=== PATIENT | female | born 1990 | race Caucasian/White ===

== ENCOUNTER 2019-09-14 04:10 | Emergency (ER) | payer MEDICAID, SELFPAY ==
[~2019-09-14] VITALS: Ht 162.6 cm; Wt 116.8 kg
[2019-09-14 04:14] VITALS: BP 161/103
--- NOTE | 2019-09-14 04:22 | NUR ---
PT SPEAKING IN FULL SENTANCES, AMBULATE TO ROOM WITH STEADY GAIT AND NAD, RADIOLOGY TO BEDSIDE FOR CHEST X RAY, HISTORY ASTHMA, NO IMPROVEMENT TONIGHTS SYMPTOMS WITH USE AT HOME
[2019-09-14] MEDS ORDERED: METF500T17 PO (04:27)
[2019-09-14] MEDS ORDERED: ALBUTEROL (04:27)
[2019-09-14] MEDS ORDERED: INSU100C SQ-INSULIN (04:27)
[2019-09-14] MEDS ORDERED: INSU100V8 SQ (04:27)
[2019-09-14] MEDS ORDERED: ALBUTEROL/IPRATROPIUM 2.5MG/0.5MG, 3 ML ONE (05:14)
[2019-09-14] MEDS ORDERED: ALBUTEROL/IPRATROPIUM 2.5MG/0.5MG, 3 ML NPPB ONE (05:30)
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
== END 2019-09-14 06:13 | disposition home or self-care (01) ==
LOC: ED 04:26
DX: J45.901 Unspecified asthma with (acute) exacerbation (principal); R05 Cough; I10 Essential (primary) hypertension; E11.9 Type 2 diabetes mellitus without complications; R94.31 Abnormal electrocardiogram [ECG] [EKG]
CPT/HCPCS: 71045; 93005; 94640; 99283

== ENCOUNTER 2020-11-12 01:12 | Emergency (ER) | payer MEDICAID ==
[~2020-11-12] VITALS: Ht 162.6 cm; Wt 114.0 kg
[~2020-11-12 01:12] MED LIST: ALBUTEROL; INSU100C SQ-INSULIN; INSU100V8 SQ; METF500T17 PO
--- NOTE | 2020-11-12 01:19 | NUR ---
BREAK RN: PT CAME INTO ED THIS EVENING DUE TO POSSIBLE . PT STATES SHE WAS HAVING LOWER ABDOMINAL PAIN ON THE RIGHT SIDE THAT "FELT LIKE MY CYSTS POPPING" AND PT STATES SHE TOOK 3 TESTS THAT WERE ALL POSITIVE TODAY. PT PLACED ON SPO2/BP MONITORING AT THIS TIME. UA OBTAINED. DEB.
[2020-11-12 01:56] LABS: BASOPHILS % (AUTO) 1 % (0-1); EOSINOPHILS % (AUTO) 3 % (1-7); LYMPHOCYTES % (AUTO) 25 % (22-44); MEAN CORPUSCULAR HEMOGLOBIN 24.8 pg (27.0-34.8); MEAN CORPUSCULAR HGB CONC 33.3 g/dL (32.4-35.8); MEAN PLATELET VOLUME 8.9 fL (7.4-10.4); MONOCYTES % (AUTO) 7 % (2-9); NEUTROPHILS % (AUTO) 64 % (42-75); PLATELET COUNT 215 x10^3/uL (130-400); RED BLOOD COUNT 4.71 x10^6/uL (3.82-5.3)
--- NOTE | 2020-11-12 02:06 | NUR ---
US AT BEDSIDE WITH PT. NADN. FLORENTINO EVEN AND UNLABORED.
[2020-11-12 02:08] LABS: ALBUMIN 3.1 g/dL (3.4-5.0); ANION GAP 10 mmol/L (5-15); CALCIUM 8.8 mg/dL (8.5-10.1); CHLORIDE 107 mmol/L (98-107); CREATININE 0.71 mg/dL (0.55-1.02)
--- NOTE | 2020-11-12 02:37 | NUR ---
Patient is resting comfortably in bed. Bed in lowest, rails engaged, call light on lap. Vital Signs within normal limits. WCTM.
[2020-11-12 02:48] LABS: MICROSCOPIC INDICATED
[2020-11-12 03:59] VITALS: BP 132/71
--- NOTE | 2020-11-12 04:00 | NUR ---
Patient given discharge instructions and they have confirmed that they understand the instructions. Patient ambulatory with steady gait. NAD, all questions answered appropriately, denies additional needs at this time. No personal belongings left in room after discharge.
== END 2020-11-12 04:12 | disposition home or self-care (01) ==
LOC: ED 02:40
DX: O26.891 Other specified pregnancy related conditions, first trimester (principal); R10.31 Right lower quadrant pain; I10 Essential (primary) hypertension; E11.9 Type 2 diabetes mellitus without complications; J45.909 Unspecified asthma, uncomplicated; Z3A.01 Less than 8 weeks gestation of pregnancy
CPT/HCPCS: 36415; 76801; 80048; 81001; 82040; 84702; 85025; 87086; 99284